=== PATIENT | female | born 1950 | race Caucasian/White ===

== ENCOUNTER → 2019-03-03 14:53 | Outpatient (CLI) | payer BC, SELFPAY ==
--- NOTE | 2019-03-03 15:00 | RAD_ITS ---
STUDY: X-RAY - LUMBAR SPINE REASON FOR EXAM: Female, 68 years old. Back pain. TECHNIQUE: 5 view(s) of the lumbar spine were obtained. COMPARISON: None FINDINGS: Normal lumbar lordosis. There is no substantial scoliosis. There is grade 1 spondylolisthesis of L4 on L5. Normal vertebral bodies and endplates. Normal disc space heights. There is no demonstrated fracture. There is hypertrophic degenerative arthroses of the right L4-5 and bilateral L5-S1 facet joints. There is atherosclerotic calcification of the abdominal aorta without a demonstrated aneurysm. [place] 3.5 cm round calcific density in the right upper quadrant near the hepatic flexure is consistent with a gallstone. RAD/L/S Spine Min 4 Views IMPRESSION: 1. Degenerative changes of the spine, as detailed above. 2. Aortic atherosclerotic calcific plaquing. No demonstrated aneurysm, the finding portends significant risk for future cardiovascular event, Abdominal Aortic Calcific Deposits Are an Important Predictor of Vascular Morbidity and Mortality; Gumaro Wu, et al. Circulation, Dec 2000;[id number]. 3. Gallstone. Electronically Signed: Bjorn Haynes MD at 19:38 EDT , Service support ,
== END ==
PROVIDERS: Family Provider Internal Medicine; PCP Internal Medicine; Referring Provider Internal Medicine; Visit Provider Internal Medicine
DX: M54.16 Radiculopathy, lumbar region (principal)
CPT/HCPCS: 72110

== ENCOUNTER → 2019-03-12 07:52 | Outpatient (CLI) | payer BC, SELFPAY ==
--- NOTE | 2019-03-12 07:57 | CT_ITS ---
STUDY: CT ABDOMEN AND PELVIS WITH CONTRAST REASON FOR EXAM: Female, 68 years old. One year history of diffuse abdominal pain. RADIATION DOSAGE (If Supplied By Facility): CTDIvol = ( 10.84 ) mGy, DLP = ( 873.41 ) mGycm TECHNIQUE: Transaxial images were obtained from the dome of the diaphragm to the symphysis pubis with oral contrast. 100CC IV/Oral Isovue 300 was administered. Sagittal and coronal images were reconstructed. Individualized dose optimization techniques were used for this CT. COMPARISON: None. FINDINGS: The visualized lung bases are unremarkable. The visualized portions of the heart are within normal limits. There are multiple hypodense nodules scattered throughout both lobes of the liver in keeping with the multiple metastasis. There is a solitary gallstone. This measures 2.9 cm x 2 cm. Normal spleen. There is a 6.7 cm x 2.4 cm hypodense mass involving the body and tail portions of the pancreas. This is in keeping with the pancreatic carcinoma. Normal bilateral adrenal glands. There is a 1.3 cm x 0.9 cm cyst in the posterior lower pole of the right kidney. There is a 8mm by 4 mm calculus at the right ureteral pelvic junction causing mild right hydronephrosis. Normal left kidney. Normal visualized stomach. Normal small intestine. Normal colon. The appendix is visualized and appears normal. There is diffuse atherosclerotic calcification of the abdominal aorta, without a demonstrated aneurysm. Normal inferior vena cava. Normal retroperitoneum. Normal urinary bladder. Normal abdominal wall. Disc space and at the L5-S1 level. CT/Abdomen/Pelvis WITH Contrast IMPRESSION: Solitary gallstone. Findings in keeping with multiple hepatic metastasis. Large pancreatic mass as described. Pancreatic carcinoma with liver metastasis should be ruled out. 8 mm x 4 mm calculus at the right ureteropelvic junction causing a mild degree of her right hydronephrosis. Electronically Signed: Dontae Benoit, at 10:35 EDT , Service support ,
== END ==
PROVIDERS: Family Provider Internal Medicine; PCP Internal Medicine; Referring Provider Internal Medicine; Visit Provider Internal Medicine
DX: R10.84 Generalized abdominal pain (principal); M54.16 Radiculopathy, lumbar region
CPT/HCPCS: 74177; Q9967

== ENCOUNTER → 2019-03-20 08:31 | Outpatient (CLI) | payer BC, SELFPAY ==
[2019-03-20] VITALS (10 sets, daily range): BP systolic 124–161; BP diastolic 54–92; PULSE 62–77; RESP 13–18; TEMP 36.1; O2SAT 94–99; BMI 22.2
--- NOTE | 2019-03-20 | IMM_PTH ---
PATIENT: MELISSA ROMERO LOC: CT U#:[id number] AGE/SX: 75/F ROOM: RE03/20/[address]: Dr. Aguilar Benites DO : 1950 BED: DIS: SPEC #: [id number] RECD: 03/24/19 11:44 STATUS: SHAYNA REQ #: [id number] DENIA: 03/20/19 00:[address]: Aguilar Benites DEPT: IMMUNOHISTOCHEMISTRY RECD BY: Lena Leyva ENTERED: 03/24/19 11:46 SP TYPE: IMMUNO OTHR DR: Dr. Rebeca Guevara DO Tissues: Liver, NOS Procedures: CA-125 (add) CEA (add) CK19 (add) CK20 (add) CK5-6 (add) CK7 (add) CK8 (add) BORRERO-2 (add) HANNAH (add) KI-67 (add) P53 (add) IA (add) Vimentin (add) Pankeratin (add) GATA3 (add) P40 (add) CDX2 (add) CD44 (add) ER (initial) PHYSICIAN & INSTITUTION [address] [address] SPECIMEN INFORMATION: Tissue Source: Liver, CT-guided biopsy Clinical Info: Pancreatic cancer Specimen Number: [id number] CPT code: 14225, 43040 x18 METHODOLOGY: Deparaffinized sections of prefer/formalin-fixed tissue or PAP/DQ stained slides are incubated with monoclonal/polyclonal antibodies/oligonucleotide probes. Localization is made via biotin free immunoperoxidase method. Appropriate controls are performed and reacted as expected. Results on target cell population are indicated in the following table: RESULTS: ANTIBODY / CLONE RESULT ER (6F11) negative IA (1E2) negative GATA3 (L50-823) positive AE1-3 (AE1/AE3/PCK26) positive CK7 (OV-TL12/30) positive CK8 (62iuuwL34) positive CK20 (KS20.8) negative P40 (BC28) negative Vimentin (V9) negative CK19 (A53-B/A2.26) positive CDX2 (KFA2472K) negative anti-CD44 (SP37) negative CK5-6 (D5 & 1684) negative Ki-67 (30-9) positive, moderate CEA (11-7/TF-3HB-1) negative HANNAH (E29) positive P53 (DO-7) positive, >50% BORRERO-2 (SP21) positive CA125 (OC125) positive, focal dim These tests were developed and their performance characteristics determined by [facility]. They may not have been cleared or approved by the U.S. Food and Drug Administration. The FDA has determined that such clearance or approval is not necessary. INTERPRETATION: Liver, CT-guided biopsy: Metastatic carcinoma. See comment. AM:davie 03/25/19 Comment: An upper GI primary including pancreas is favored. Clinical correlation is necessary.
--- NOTE | 2019-03-20 | ASPIGT_PTH ---
PATIENT: MELISSA ROMERO LOC: ND U#:[id number] AGE/SX: 75/F ROOM: RE03/20/[address]: Dr. Aguilar Benites DO : 1950 BED: DIS: SPEC #: [id number] RECD: 03/20/19 10:30 STATUS: SHAYNA REMilan #: [id number] DENIA: 03/20/19 00:[address]: Aguilar Benites DEPT: SURGICAL PATHOLOGY RECD BY: Kristian Monahan ENTERED: 03/20/19 13:39 SP TYPE: ASP RAD OTHR DR: Dr. Rebeca Guevara DO Tissues: Liver, NOS Procedures: FNA Specimen Adequacy Special Stain Group II Surgery Specimen Level V Imprint (control) HEADER OPERATION: CT-guided liver biopsy PRE-OP DIAGNOSIS: Pancreatic cancer TISSUE SUBMITTED: Liver 18 gauge x5 (5 DQ, 2 pap) MICROSCOPIC DIAGNOSIS Liver mass, CT-guided needle core biopsy: Metastatic adenocarcinoma. See comment. AM:davie 03/24/19 COMMENT The specimen is evaluated at the time of biopsy by Dr. Mariscal. Immediate Evaluation = Positive for malignant cells consistent with metastatic non-small cell carcinoma. 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 Clinical correlation is suggested. MICROSCOPIC DESCRIPTION Slides are reviewed. GROSS DESCRIPTION Received in fixative is one container labeled with the patient's name and designated liver. The specimen consists of multiple cores of light stark soft tissue. Each core has an average length of 2 cm and a maximal diameter of <0.1 cm. The specimen is submitted in its entirety in one cassette. / AM:davie 03/20/19 TC:0 CPT: 42989
--- NOTE | 2019-03-20 08:45 | CT_ITS ---
PROCEDURE: CT DIRECTED CORE LIVER BIOPSY INDICATION: Female, 68 years old. Pancreatic mass and liver masses. PHYSICIAN: Dr. Kaycee VILLANUEVA CONSENT: Written informed consent was obtained having explained the risks, benefits and alternatives in detail with the patient who accepted the risks and agreed to proceed. Laboratory review and clinical assessment was performed. CONSCIOUS SEDATION PROTOCOL: The Drugs used were: 1 mg Versed, IV., and 50 mcg Fentanyl, IV. The sedation time was: 20 minutes. Conscious sedation was started at 9:31 AM and terminated at 9:51 AM. The conscious sedation protocol was independently monitored. RADIATION DOSAGE (If Supplied By Facility): CTDIvol = ( 15 ) mGy, DLP = ( 320.94 ) mGycm Individualized dose optimization techniques were used for this CT. TECHNIQUE: Using CT image guidance with image documentation, a suitable location in the left lobe of the liver was identified. Using a left anterior approach, puncture of the liver was uneventful with an 18-gauge core needle system. 5 18-gauge core samples were obtained, and submitted in formalin to the pathologist for further assessment. Followup CT scan revealed no distinct sequelae. CT/Biopsy/Inj or Needle Placement IMPRESSION: 1. CT directed core needle biopsy of the liver, using CT image guidance with image documentation as described. 2. Conscious Sedation protocol utilized with independent monitoring. Electronically Signed: Dontae Benoit, at 10:25 EDT , Service support ,
[2019-03-20 08:52] LABS: Platelet Count 197 K/mm3 (150-450)
[2019-03-20 09:00] LABS: International Normalized Ratio 1.2; Prothrombin Time (Protime)PT. 14.5 SECONDS (11.7-14.9)
[2019-03-20 09:01] LABS: Partial Thromboplast Time 24.1 Seconds (24.1-36.2)
--- NOTE | 2019-03-20 09:19 | CT_ITS ---
STUDY: CT ABDOMEN AND PELVIS WITHOUT CONTRAST REASON FOR EXAM: Female, 68 years old. History of stone at the right ureteropelvic junction. Follow-up examination. History of a pancreatic mass and liver metastasis. RADIATION DOSAGE (If Supplied By Facility): CTDIvol = ( 6.23 ) mGy, DLP = ( 268.22 ) mGycm TECHNIQUE: Transaxial images were obtained from the dome of the diaphragm to the symphysis pubis without oral contrast, and without intravenous contrast. Sagittal and coronal images were reconstructed. Individualized dose optimization techniques were used for this CT. COMPARISON: Comparison is made with prior study dated March 12, 2019. FINDINGS: The visualized lung bases are unremarkable. Coronary artery calcification. Once again, there are multiple hypodense nodules scattered throughout both the right and left lobes of the liver. These are unchanged. Mildly distended gallbladder. There is a 2.9 cm x 2 cm solitary gallstone within the gallbladder. There is also evidence of sludge. Normal spleen. Stable appearance of the pancreatic mass. Normal bilateral adrenal glands. Mild right hydronephrosis due to a 8 mm x 4 mm pancreas at the right ureteropelvic junction. This is unchanged. Stable right renal cyst. There is also evidence of a 4 mm nonobstructive calculus in the lower pole of the left kidney. Normal visualized stomach. Normal small intestine. Normal colon. The appendix is visualized and appears normal. There is diffuse atherosclerotic calcification of the abdominal aorta, without a demonstrated aneurysm. Normal inferior vena cava. Normal retroperitoneum. Normal urinary bladder. Small amount of free fluid is seen in the cul-de-sac. Normal abdominal wall. Disc space narrowing at the L5-S1 level. CT/Abdomen/Pelvis without Cont IMPRESSION: Stable examination. Electronically Signed: Dontae Benoit, at 10:30 EDT , Service support ,
[2019-03-20] MEDS: Midazolam 2 MG/2 ML Syringe IV (09:32)
[2019-03-20] MEDS: fentaNYL 100 MCG/2 ML Ampul IV (09:33)
== END ==
PROVIDERS: Family Provider Internal Medicine; PCP Internal Medicine; Referring Provider Internal Medicine Hematology & Oncology; Visit Provider Internal Medicine Hematology & Oncology
DX: C25.9 Malignant neoplasm of pancreas, unspecified (principal); C78.7 Secondary malignant neoplasm of liver and intrahepatic bile duct; N13.2 Hydronephrosis with renal and ureteral calculous obstruction
CPT/HCPCS: 47000; 36415; 74176; 77012; 85049; 85610; 85730; 88172; 88307; 88313; 88341; 88342; 99156; 99157; J7040; A4216